=== PATIENT | female | born 1985 | race Caucasian/White ===

== ENCOUNTER 2021-10-22 14:15 | Inpatient (IN) | payer OTHER ==
[~2021-10-22] VITALS: Ht 170.2 cm; Wt 74.8 kg
[2021-11-13] MEDS ORDERED: PRENATAL TABLE1 EAC1 (03:42)
[2021-11-16] MEDS ORDERED: OXYC1TAB9 PO (10:34)
[2021-11-16] MEDS ORDERED: KETO10TA2 PO (10:34)
== END 2021-11-16 13:04 | disposition home or self-care (01) | DRG 788 ==
LOC: EDSTATUS 14:15 → OB/GYN 10-31 14:15 → LDR 11-13 02:38 → OB/GYN 11-13 03:45 → LDR 11-13 14:34 → OB/GYN 11-14 07:28
PROVIDERS: ADMIT Obstetrics & Gynecology; ATTEND Obstetrics & Gynecology
PROC: 4A1HXCZ Monitoring of Products of Conception, Cardiac Rate, External Approach (ICD-10-PCS; 2021-11-13)
PROC: 10D00Z1 Extraction of Products of Conception, Low, Open Approach (ICD-10-PCS; principal; 2021-11-13 17:15)
DX: O62.0 Primary inadequate contractions (principal); O48.0 Post-term pregnancy; Z3A.41 41 weeks gestation of pregnancy; Z37.0 Single live birth; Z20.822 Contact with and (suspected) exposure to COVID-19

== ENCOUNTER 2021-10-31 09:39 | Outpatient (CLI) | payer OTHER | END 2021-10-31 10:09 | disposition home or self-care (01) | LOC: NST 09:39 | PROVIDERS: ATTEND Obstetrics & Gynecology | DX: Z34.83 Encounter for supervision of other normal pregnancy, third trimester (principal) ==

== ENCOUNTER 2021-11-04 09:47 | Outpatient (CLI) | payer OTHER | END 2021-11-04 10:23 | disposition home or self-care (01) | LOC: NST 09:47 | PROVIDERS: ATTEND Obstetrics & Gynecology Maternal & Fetal Medicine | DX: Z34.83 Encounter for supervision of other normal pregnancy, third trimester (principal) ==